=== PATIENT | male | born 1970 | race Caucasian/White ===

== ENCOUNTER 2018-11-13 12:15 | Emergency (ER) | payer SELFPAY ==
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
[2018-11-13 12:23] VITALS: BP 148/105; PULSE 77; RESP 16; TEMP 36.6; O2SAT 99
--- NOTE | 2018-11-13 13:02 | DI.RAD_ITS ---
SYMPTOMS/DIAGNOSIS: S/P FALL, ? ACUTE FRACTURE RIGHT SHOULDER: There is spurring at the AC joint. No fracture or dislocation is seen. A subchondral cyst is seen in the humeral head. There is spurring at the glenoid. IMPRESSION: Degenerative changes. No acute abnormality. PA AND LATERAL CHEST AND RIGHT RIBS: The heart size is normal. The lungs appear clear. No pneumothorax is seen. There is no infiltrate or effusion. Degenerative changes are seen in the spine. No rib fractures are identified. IMPRESSION: No acute abnormality.
[2018-11-13] MEDS: Ibuprofen 600 MG TAB PO (13:14)
--- NOTE | 2018-11-13 14:17 | DI.VRAD_ITS ---
EXAM: XR Right Ribs EXAM DATE/TIME: 11/13/2018 1:04 PM CLINICAL HISTORY: 48 years old, male; Signs and symptoms; Other: S/P fall, R/O acute fracture TECHNIQUE: Imaging protocol: XR Right ribs Views: 2 views. COMPARISON: No relevant prior studies available. FINDINGS: Bones/joints: Normal. Soft tissues: Normal. IMPRESSION: No acute findings. EXAM: XR Chest, 2 Views EXAM DATE/TIME: 11/13/2018 1:04 PM CLINICAL HISTORY: 48 years old, male; Signs and symptoms; Other: S/P fall, R/O acute fracture TECHNIQUE: Imaging protocol: XR of the chest, 2 views. COMPARISON: No relevant prior studies available. FINDINGS: Lungs: Unremarkable. No consolidation. Pleural space: Unremarkable. No pleural effusion. No pneumothorax. Heart/Mediastinum: Unremarkable. No cardiomegaly. Bones/joints: Unremarkable. IMPRESSION: No acute findings. Dictated and Authenticated by: Jacobo Coats MD. Ordering:MANISHA Harrison MD
--- NOTE | 2018-11-13 14:19 | DI.VRAD_ITS ---
EXAM: XR Right Shoulder EXAM DATE/TIME: 11/13/2018 1:04 PM CLINICAL HISTORY: 48 years old, male; Signs and symptoms; Other: S/P fall, R/O acute fracture TECHNIQUE: Imaging protocol: XR Right shoulder. Views: 2 or more views. COMPARISON: No relevant prior studies available. FINDINGS: Bones/joints: Degenerative changes in the acromioclavicular joint Degenerative changes in the glenohumeral joint There is no evidence of acute fracture. There is no evidence of malalignment or dislocation. Soft tissues: Normal. IMPRESSION: 1. There is no evidence of acute fracture. 2. There is no evidence of malalignment or dislocation. Dictated and Authenticated by: Jacobo Coats MD. Ordering:MANISHA Harrison MD
== END 2018-11-13 14:57 | disposition home or self-care (01) ==
PROVIDERS: Emergency Provider Physician Assistant; PCP Family Medicine
DX: S20.221A Contusion of right back wall of thorax, initial encounter (principal); S20.211A Contusion of right front wall of thorax, initial encounter; S46.911A Strain of unspecified muscle, fascia and tendon at shoulder and upper arm level, right arm, initial encounter; I10 Essential (primary) hypertension; V86.05XA Driver of 3- or 4- wheeled all-terrain vehicle (ATV) injured in traffic accident, initial encounter
CPT/HCPCS: 99284; 71046; 71100; 73030; 99282

== ENCOUNTER 2019-02-04 12:06 | Emergency (ER) | payer OTHER, SELFPAY ==
[2019-02-04 12:13] VITALS: BP 175/98; PULSE 94; RESP 16; TEMP 36.5; O2SAT 96
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
== END 2019-02-04 12:42 | disposition home or self-care (01) ==
PROVIDERS: Emergency Provider Student in an Organized Health Care Education/Training Program; PCP Family Medicine
DX: S43.402A Unspecified sprain of left shoulder joint, initial encounter (principal); V43.51XA Car driver injured in collision with sport utility vehicle in traffic accident, initial encounter; I10 Essential (primary) hypertension
CPT/HCPCS: 99283; 99282

== ENCOUNTER 2019-05-16 09:02 | Outpatient (CLI) | payer SELFPAY, OTHER ==
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
== END 2019-05-16 09:22 ==
PROVIDERS: PCP Family Medicine; Visit Provider Chiropractor
DX: M54.2 Cervicalgia (principal); R51 Headache; M50.321 Other cervical disc degeneration at C4-C5 level; M50.322 Other cervical disc degeneration at C5-C6 level
CPT/HCPCS: 72125

== ENCOUNTER 2019-06-13 03:05 | Outpatient (CLI) | payer OTHER, SELFPAY ==
[2019-06-13 13:04] LABS: ALT 33 U/L (16-63); AST 19 U/L (15-37); Albumin 3.7 g/dL (3.4-5.0); Alkaline Phosphatase 80 U/L (46-116); Anion Gap 5.3 mmol/L (3-11); BUN 22 mg/dL (7-18); Bilirubin, Total 0.3 mg/dL (0.2-1.0); CO2 30.7 mmol/L (21.0-32.0); CREATININE 0.82 mg/dL (0.70-1.30); Calcium 9.2 mg/dL (8.5-10.1); Chloride 106 mmol/L (98-107); Glucose 98 mg/dL (74-106); Potassium 5.4 mmol/L (3.5-5.1); Sodium 142 mmol/L (136-145); Total Protein 6.9 g/dL (6.4-8.2)
[2019-06-13 13:06] LABS: Calculated LDL 152 mg/dL; Cholesterol 200 mg/dL (<200); HDL Cholesterol 33 mg/dL (40-60); Triglyceride 79 mg/dL (<150)
== END 2019-06-13 03:25 ==
PROVIDERS: PCP Family Medicine; Visit Provider Internal Medicine
DX: I10 Essential (primary) hypertension (principal); Z79.1 Long term (current) use of non-steroidal anti-inflammatories (NSAID)
CPT/HCPCS: 36415; 80053; 80061

== ENCOUNTER 2019-06-19 01:01 | Outpatient (CLI) | payer OTHER, SELFPAY ==
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
== END 2019-06-19 01:21 ==
PROVIDERS: PCP Family Medicine; Visit Provider Internal Medicine
DX: M25.511 Pain in right shoulder (principal); M25.512 Pain in left shoulder; M19.012 Primary osteoarthritis, left shoulder
CPT/HCPCS: 73030

== ENCOUNTER 2019-07-27 01:08 | Outpatient (CLI) | payer OTHER, SELFPAY ==
[2019-07-27 13:00] LABS: ALT 34 U/L (16-63); AST 19 U/L (15-37); Albumin 3.8 g/dL (3.4-5.0); Alkaline Phosphatase 87 U/L (46-116); Anion Gap 5.1 mmol/L (3-11); BUN 16 mg/dL (7-18); Bilirubin, Total 0.5 mg/dL (0.2-1.0); CO2 31.9 mmol/L (21.0-32.0); CREATININE 0.98 mg/dL (0.70-1.30); Calcium 9.2 mg/dL (8.5-10.1); Chloride 101 mmol/L (98-107); Glucose 104 mg/dL (74-106); Potassium 3.8 mmol/L (3.5-5.1); Sodium 138 mmol/L (136-145); Total Protein 6.9 g/dL (6.4-8.2)
== END 2019-07-27 01:28 ==
PROVIDERS: PCP Family Medicine; Visit Provider Internal Medicine
DX: I10 Essential (primary) hypertension (principal)
CPT/HCPCS: 36415; 80053

== ENCOUNTER 2019-09-25 13:34 | Outpatient (CLI) | payer SELFPAY ==
--- NOTE | 2019-09-25 13:30 | DI.US_ITS ---
EXAM: US LOWER EXTREMITY VENOUS LT CLINICAL HISTORY: pain,swelling lt lower ext,m79.605,m79.89,m79.662, ? dvt. TECHNIQUE: Right lower extremity venous ultrasound performed using grayscale, color-flow, and spectr al Doppler analysis. COMPARISON: No exams were available for comparison FINDINGS: The right common femoral, femoral and popliteal veins demonstrate normal compressibility, augmentatio n, and color Doppler. The posterior tibial veins are patent. In the area of the redness in the patie nt's thigh, there is thrombus visualized in the greater saphenous vein which is also dilated. No damon tamika or Owens's cyst is seen. IMPRESSION: Focal saphenous thrombosis in the area of the redness the medial thigh. No evidence of deep venous t hrombosis. DATA REPOSITORY:
[2019-09-25 14:22] LABS: Abs Immature Grans 0.03 k/cumm (0.0-0.09); Absolute Basophil Count 0.06 k/cumm (0.0-0.2); Absolute Eosinophil Count 0.31 k/cumm (0.0-0.7); Absolute Lymphocyte Count 1.93 k/cumm (1.2-3.4); Absolute Monocyte Count 1.05 k/cumm (0.11-0.7); Absolute Neutrophil Count 8.05 k/cumm (1.2-6.7); Basophils % 0.5; Eosinophils % 2.7; HCT 47.5 % (40.0-50.0); HGB 16.4 g/dL (13.5-17.5); Immature Grans % 0.3 %; Lymphocytes % 16.9; Mean Corp. HGB Concentration 34.5 g/dL (32.0-36.0); Mean Corpuscular Hemoglobin 31.2 pg (27.0-33.0); Mean Corpuscular Volume 90.3 fL (80-95); Mean Platelet Volume 9.7 fL (8.0-11.0); Monocytes % 9.2; Neutrophils % 70.4; Platelet Count 274 x1000/uL (130-400); RBC 5.26 m/cumm (4.50-6.00); RBC Distribution Width 13.3 % (11.8-14.1); White Blood Cell Count 11.43 k/cumm (4.4-10.8)
[2019-09-25 14:57] LABS: D-Dimer 1533 ng/mlFEU (<500)
[2019-09-25 15:00] LABS: Anion Gap 8.5 mmol/L (3-11); BUN 17 mg/dL (7-18); C-Reactive Protein 0.45 mg/dL (0.0-0.3); CO2 29.5 mmol/L (21.0-32.0); CREATININE 0.93 mg/dL (0.70-1.30); Calcium 9.5 mg/dL (8.5-10.1); Chloride 103 mmol/L (98-107); Glucose 111 mg/dL (74-106); Potassium 3.8 mmol/L (3.5-5.1); Sodium 141 mmol/L (136-145)
[2019-09-26 10:02] LABS: Lyme Ab w Rflx to Lyme Confirm Negative (Negative)
[2019-09-29 03:13] LABS: Anaplasma phagocytophilum Negative (Negative); B. miyamotoi PCR Negative (Negative); Babesia divergens/MO-1 Negative (Negative); Babesia duncani Negative (Negative); Babesia microti Negative (Negative); Ehrlichia chaffeensis Negative (Negative); Ehrlichia ewingii/canis Negative (Negative); Ehrlichia muris eauclairensis Negative (Negative)
== END 2019-09-25 13:54 ==
PROVIDERS: PCP Family Medicine; Visit Provider Nurse Practitioner Family
DX: M79.662 Pain in left lower leg (principal); R22.42 Localized swelling, mass and lump, left lower limb; M79.652 Pain in left thigh; I82.812 Embolism and thrombosis of superficial veins of left lower extremity
CPT/HCPCS: 80048; 87798; 85025; 85379; 86140; 86618; 93971

== ENCOUNTER 2019-10-04 10:00 | Outpatient (CLI) | payer SELFPAY ==
--- NOTE | 2019-10-04 09:30 | DI.US_ITS ---
EXAM: US LOWER EXTREMITY VENOUS LT CLINICAL HISTORY: I82.819 embolism/thrombosis superficial veins LLE, ?enlargement, ? DVT TECHNIQUE: Ultrasound performed using standard protocol. COMPARISON: US LOWER EXTREMITY VENOUS LT from 09/25/2019 FINDINGS: Duplex evaluation of the deep venous system of the left lower extremity was performed according to e usual protocol.Examination is compared with prior examination of 09/25/2019. Prior examination javed wed a saphenous thrombosis in the medial thigh. No DVT was identified on the prior study. On today's examination there is no evidence of deep venous thrombosis. However the greater saphenous vein thrombus now extends proximally and lies 5-10 millimeters from the common femoral vein. No dir ect common femoral vein involvement seen. No additional significant findings. IMPRESSION: Extension of greater saphenous thrombus proximally which now approaches the greater saphenous/common femoral junction. Distance from thrombus to junction is 5-10 millimeters. You may wish to consider anticoagulation at this time. DATA REPOSITORY:
== END 2019-10-04 10:20 ==
PROVIDERS: PCP Family Medicine; Visit Provider Nurse Practitioner Family
DX: I82.812 Embolism and thrombosis of superficial veins of left lower extremity (principal)
CPT/HCPCS: 93971

== ENCOUNTER 2020-01-22 01:23 | Outpatient (CLI) | payer OTHER, SELFPAY ==
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
== END 2020-01-22 01:43 ==
PROVIDERS: PCP Nurse Practitioner Family; Visit Provider Student in an Organized Health Care Education/Training Program
DX: M25.512 Pain in left shoulder (principal); M19.012 Primary osteoarthritis, left shoulder
CPT/HCPCS: 73221

== ENCOUNTER 2020-06-05 03:04 | Outpatient (CLI) | payer OTHER, SELFPAY ==
[2020-06-05 13:13] LABS: Abs Immature Grans 0.03 10^3/uL (0.0-0.06); Absolute Basophil Count 0.07 10^3/uL (0.0-0.2); Absolute Eosinophil Count 0.19 10^3/uL (0.0-0.7); Absolute Lymphocyte Count 1.79 10^3/uL (1.2-3.4); Absolute Monocyte Count 0.84 10^3/uL (0.1-0.8); Absolute Neutrophil Count 6.55 10^3/uL (1.2-6.7); Basophils % 0.7; HCT 48.9 % (40.0-50.0); HGB 16.3 g/dL (13.5-17.5); Immature Grans % 0.3; Lymphocytes % 18.9; MCH 30.9 pg (27.0-33.0); MCHC 33.3 % (32.0-36.0); MCV 92.8 fL (80-95); MPV 10.1 fL (8.0-11.0); Monocytes % 8.9; Neutrophils % 69.2; Nucleated RBC 0 %; Platelet Count 282 10^3/uL (130-400); RBC 5.27 10^6/uL (4.36-5.78); RDW-SD 44.9 fL; WBC 9.47 10^3/uL (4.4-10.8)
[2020-06-05 13:20] LABS: ALT 41 U/L (16-63); AST 18 U/L (15-37); Albumin 3.6 g/dL (3.4-5.0); Alkaline Phosphatase 97 U/L (46-116); Anion Gap 8.2 mmol/L (3-11); BUN 18 mg/dL (7-18); Bilirubin, Total 0.4 mg/dL (0.2-1.0); CO2 30.8 mmol/L (21.0-32.0); CREATININE 1.14 mg/dL (0.70-1.30); Calcium 9.2 mg/dL (8.5-10.1); Calculated LDL 164 mg/dL (<100); Chloride 100 mmol/L (98-107); Cholesterol 223 mg/dL (<200); Glucose 129 mg/dL (74-106); HDL Cholesterol 32 mg/dL (40-60); Potassium 4.8 mmol/L (3.5-5.1); Sodium 139 mmol/L (136-145); Triglyceride 136 mg/dL (<150)
== END 2020-06-05 03:24 ==
PROVIDERS: PCP Nurse Practitioner Family; Visit Provider Nurse Practitioner Family
DX: E78.5 Hyperlipidemia, unspecified (principal); Z01.818 Encounter for other preprocedural examination
CPT/HCPCS: 36415; 80053; 80061; 83036; 85025

== ENCOUNTER 2020-09-09 00:44 | Outpatient (CLI) | payer OTHER, SELFPAY ==
--- NOTE | 2020-09-09 13:49 | DI.US_ITS ---
APPROVED REPORT EXAM: Comprehensive 2D, Doppler, and color-flow Echocardiogram Patient Location: [facility] Advocate: Kyung George RDCS (AE) Indications: Pre operative Other Information Study Quality: Fair. Technically limited study due to body habitus. Conclusion Technically difficult but adequate study Normal left ventricular chamber size and wall thickness. Estimated ejection fraction is 55 to 60%. There are no segmental wall motion abnormalities Normal right ventricular size and systolic function Both atria are normal in size There is no significant valvular disease Wall motion Left Ventricle The left ventricle is normal size. The left ventricular systolic function is normal. The left ventric ular ejection fraction is within the normal range. There is normal left ventricular wall thickness. T here is normal LV segmental wall motion. There is no ventricular septal defect visualized. LVEF is 56 %. Right Ventricle Right ventricle is grossly normal in size. Right ventricular systolic function is grossly normal. Atria The left atrium size is normal. The right atrium size is normal. The interatrial septum is intact wit h no evidence for an atrial septal defect. Aortic Valve The aortic valve is normal in structure. There is no aortic valvular stenosis. No aortic regurgitatio n is present. Mitral Valve The mitral valve is normal in structure. No evidence of mitral valve stenosis. Trace mitral regurgita tion. Tricuspid Valve The tricuspid valve is normal in structure. There is no tricuspid valve stenosis. Trace tricuspid reg urgitation. Unable to assess PA pressure. Pulmonic Valve Pulmonic valve is not well visualized. There is no pulmonic valvular stenosis. Great Vessels The aortic root is normal in size. Ascending aorta is not Aortic arch is normal in caliber. The IVC was not visualized. Pericardium There is no pericardial effusion. 2D Dimensions IVSD d PLAX 1.24 cm M: 0.6-1.2 LV Vol A2C d MOD 146.4 mL LVPW d PLAX 1.22 cm M: 0.6 - 1.2 LV Vol A4C d MOD 196.0 mL LVID d PLAX 5.21 cm M: 4.2 - 5.8 LV EF A4C MOD 56.0 % LVDs 3.70 cm M: 2.5 - 4.0 LV EF A2C MOD 56.7 % Ao Root d 3.71 cm M: 3.1 - 3.7 LV EF Biplane MOD 55.9 % RA Area A4C 15.25 cm2 SV 94.73 mL RA Vol/ BSA A4C s A-L 15.0 mL/m2 SV Index 33.28 mL/m2 LV EF Teichholz 55.1 % LVEF (Johnson's) 55.86 % M: 52 - 72 LV Volume 114.59 mL M: 62 - 150 LV Volume Index 40.34 mL/m2 M: 34 - 74 LV Vol Biplane MOD 169.6 mL FS 28.85 % M-Mode TAPSE 2.35 cm (M/F) >1.7 LV Diastology MV E' medial 0.095 (>0.07 m/s) E/A Ratio 1.3 LV E/e MED 6.95 (<14) MV E Vmax 0.66 (0.4-1.3 m/s) MV E' lateral 0.126 (>0.1 m/s) MV A Vmax 0.50 (0.4-1.3 m/s) LV E/e LAT 5.25 (<14) MV E/A Ratio 1.22 MV E/E' medial 6.96 MV E/E' lateral 5.27 Aortic Valve LVOT Area 4.85 cm2 AoV Area Vmax 3.93 cm2 LVOT Vmax 0.93 m/s AoV Area/ BSA (Vmax) 1.38 cm2/m2 LVOT Mean Malachi. 0.62 m/s MARILOU Mean Malachi. 3.57 cm2 LVOT Peak Grad 3.5 mmHg MARILOU Mean Malachi. Index 1.25 cm2/m2 LVOT Mean Grad 1.8 mmHg LVOT VTI 0.165 m LVOT Diam s 2.45 cm AoV Vmax 1.15 m/s Velocity Ratio 0.80 AoV Mean Malachi. 0.85 m/s AoV Peak Grad 5.3 mmHg LVOT SV 80.05 mL AoV Mean Grad 3.1 mmHg AoV VTI 0.207 m AoV Area VTI 3.87 cm2 AoV Area/ BSA (VTI) 1.36 cm/m2 Mitral Valve MV DT 249 (160-240 msec) MV PHT 72 msec MV Area PHT 3.05 cm2 Pulmonary Valve PV Vmax 0.95 (0.5-1.5 m/s) RVOT Peak Gr. 2.37 mmHg PV Peak Grad 3.6 mmHg RVOT Mean Gr. 1.20 mmHg PV Mean Grad 2.2 mmHg RVOT VTI 0.132 m PV VTI 0.167 m RVOT Vmax 0.77 m/s
== END 2020-09-09 01:04 ==
PROVIDERS: PCP Nurse Practitioner Family; Visit Provider Nurse Practitioner Family
DX: Z01.810 Encounter for preprocedural cardiovascular examination (principal); R93.9 Diagnostic imaging inconclusive due to excess body fat of patient
CPT/HCPCS: 93306

== ENCOUNTER 2021-02-18 04:37 | Outpatient (CLI) | payer OTHER, SELFPAY ==
[2021-02-18 13:01] LABS: BUN 16 mg/dL (7-18); CREATININE 1.2 mg/dL (0.70-1.30); Calcium 9.8 mg/dL (8.5-10.1); Calculated LDL 118 mg/dL (<100); Chloride 97 mmol/L (98-107); Cholesterol 209 mg/dL (<200); Glucose 407 mg/dL (74-106); HDL Cholesterol 25 mg/dL (40-60); Potassium 4.4 mmol/L (3.5-5.1); Sodium 137 mmol/L (136-145); Triglyceride 331 mg/dL (<150)
[2021-02-18 13:14] LABS: Hemoglobin A1C 11.2 % (<5.7)
== END 2021-02-18 04:38 | disposition home or self-care (01) ==
PROVIDERS: PCP Nurse Practitioner Family; Visit Provider Nurse Practitioner Family
DX: R73.03 Prediabetes (principal)
CPT/HCPCS: 36415; 80048; 80061; 83036

== ENCOUNTER 2021-02-20 16:01 | Outpatient (REF) | payer OTHER, SELFPAY ==
[2021-02-20 15:51] LABS: Bilirubin Negative (Negative); Blood Large (Negative); Clarity Clear (Clear); Glucose >=1000 mg/dL (Negative); Ketones 40 mg/dL (Negative); Leukocyte Esterase Small (Negative); Nitrite Negative (Negative); Urobilinogen 0.2 EU/dL (Up TO 0.2); pH 5.5 (5-8)
[2021-02-20 16:17] LABS: Bacteria Few HPF (Negative); Epithelial Cells Many HPF (Negative); WBC >50 HPF (0-5)
[2021-02-20 16:18] LABS: C & S Indicated? No/Sq. Contamination; Casts Negative LPF (Negative); Crystals Few Amorphous HPF (Negative); Mucus Negative (Negative)
[2021-02-21 14:40] LABS: COMMENT (LAB VIEW ONLY) 84.28 mg/dL; Microalb ug/mg Crea 52.6 ug/mg Cr
== END 2021-02-20 16:02 | disposition home or self-care (01) ==
LOC: LBN 16:01
PROVIDERS: PCP Nurse Practitioner Family; Visit Provider Nurse Practitioner Family
DX: E11.9 Type 2 diabetes mellitus without complications (principal)
CPT/HCPCS: 81003; 81015; 82043; 82570

== ENCOUNTER 2021-03-25 03:47 | Outpatient (CLI) | payer OTHER, SELFPAY ==
[2021-03-25 13:13] LABS: Anion Gap 9.3 mmol/L (3-11); BUN 31 mg/dL (7-18); CO2 26.7 mmol/L (21.0-32.0); CREATININE 1.2 mg/dL (0.70-1.30); Calcium 9.2 mg/dL (8.5-10.1); Calculated LDL 95 mg/dL (<100); Chloride 103 mmol/L (98-107); Cholesterol 154 mg/dL (<200); Glucose 122 mg/dL (74-106); HDL Cholesterol 28 mg/dL (40-60); Potassium 4.8 mmol/L (3.5-5.1); Sodium 139 mmol/L (136-145); Triglyceride 159 mg/dL (<150)
== END 2021-03-25 03:48 | disposition home or self-care (01) ==
LOC: LOS 03:48
PROVIDERS: PCP Nurse Practitioner Family; Visit Provider Nurse Practitioner Family
DX: E11.9 Type 2 diabetes mellitus without complications (principal)
CPT/HCPCS: 36415; 80048; 80061

== ENCOUNTER 2021-09-04 02:27 | Outpatient (CLI) | payer OTHER, SELFPAY ==
[2021-09-04 09:14] LABS: Anion Gap 8.6 mmol/L (3-11); BUN 25 mg/dL (7-18); CO2 27.4 mmol/L (21.0-32.0); CREATININE 1.1 mg/dL (0.70-1.30); Calcium 9.1 mg/dL (8.5-10.1); Calculated LDL 79 mg/dL (<100); Chloride 101 mmol/L (98-107); Cholesterol 142 mg/dL (<200); Glucose 97 mg/dL (74-106); HDL Cholesterol 30 mg/dL (40-60); Potassium 4.3 mmol/L (3.5-5.1); Sodium 137 mmol/L (136-145); Triglyceride 166 mg/dL (<150)
== END 2021-09-04 02:28 | disposition home or self-care (01) ==
LOC: LBO 02:27
PROVIDERS: PCP Nurse Practitioner Family; Visit Provider Nurse Practitioner Family
DX: E11.9 Type 2 diabetes mellitus without complications (principal)
CPT/HCPCS: 36415; 80048; 80061; 83036

== ENCOUNTER 2023-04-21 11:40 | Outpatient (CLI) | payer OTHER, SELFPAY ==
[2023-04-21 13:16] LABS: ALT 38 U/L (16-63); AST 24 U/L (15-37); Albumin 3.8 g/dL (3.4-5.0); Alkaline Phosphatase 81 U/L (46-116); Anion Gap 7.8 mmol/L (3-11); BUN 27 mg/dL (7-18); Bilirubin, Total 0.3 mg/dL (0.2-1.0); CO2 30.2 mmol/L (21.0-32.0); CREATININE 1.2 mg/dL (0.70-1.30); Calcium 10.1 mg/dL (8.5-10.1); Chloride 103 mmol/L (98-107); Estimated GFR 73.67 (mL/min/1.73m2); Glucose 131 mg/dL (74-106); Potassium 4.6 mmol/L (3.5-5.1); Sodium 141 mmol/L (136-145); TSH (W/Ref FT4) 1.92 uIU/mL (0.36-3.74); Total Protein 8.1 g/dL (6.4-8.2)
[2023-04-22 10:10] LABS: PSA, Screening 0.4 ng/mL (<=3.5)
[2023-04-22 10:30] LABS: Hepatitis C Ab w Rflx HCV PCR Negative (Negative)
== END 2023-04-21 11:41 | disposition home or self-care (01) ==
LOC: LOS 11:41
PROVIDERS: PCP Nurse Practitioner Family; Referring Provider Nurse Practitioner Family; Visit Provider Nurse Practitioner Family
DX: Z00.00 Encounter for general adult medical examination without abnormal findings (principal)
CPT/HCPCS: 36415; 80053; 84153; 86803; 84443

== ENCOUNTER 2024-08-15 02:47 | Outpatient (CLI) | payer MEDICARE, SELFPAY ==
--- NOTE | 2024-08-15 | DI.CTLCSR_ITS ---
Exam(s) CT CHEST LUNG CANCER SCREEN EXAM: CT CHEST LUNG CANCER SCREEN CLINICAL HISTORY: Screening for lung cancer,personal h/o nicotine dependence, z87.891 TECHNIQUE: Imaging Protocol: Axial computed tomography images with coronal and sagittal reformatted images were created and reviewed. Lung Computer Aided Detection (CAD) was utilized. COMPARISON: No exams were available for comparison FINDINGS: Tracheobronchial tree: Patent where visualized. No bronchiectasis. Pulmonary parenchyma: No consolidation or dominant measurable mass. No architectural distortion. Lung Nodules: There is a 3 mm nodule in the left upper lobe (series 2, image 47). Mediastinum and Josefa: No dominant adenopathy or fluid collection. The esophagus is unremarkable. Thyroid gland: Unremarkable. Lymph nodes: Unremarkable. Pleura: No effusion or pneumothorax. Heart: The heart is not dilated. No coronary artery calcifications are seen. No pericardial effusion . Aorta: Thoracic aorta non-dilated.Mild atherosclerotic calcification is present. Upper abdomen: Evaluation of the abdomen is limited due to the technique. No gross abnormality is i dentified. Soft Tissues: Unremarkable. Bones: Within normal limits. IMPRESSION: 3 mm left upper lobe nodule. Lung RADS Cat 2 - Benign Appearance / Behavior: Nodules with a very low likelihood of becoming a clin ically active cancer due to size or lack of growth Lung-RADS 1.0 CATEGORIES: Category 0 - Prior chest CT exam(s) being located for comparison. Category 1 - Annual screening in 12 months. No nodules or definitely benign nodules. Category 2 - Annual screening in 12 months. Benign appearance. Nodules with low likelihood of becomin g active cancer. Category 3 - 6-month follow-up. Probably benign. Short-term follow-up suggested. Nodules with low lik elihood of becoming active cancer. Category 4A - 3-month follow-up and CT/PET if >8 mm in size. Suspicious finding. Findings which requi re additional testing. Category 4B - Findings which require additional testing and tissue sampling. Suspicious finding. Category 4X - Category 3 or 4 nodules with additional features or imaging findings that increases the suspicion of malignancy. Modifier S- Potentially clinically significant finding. (Non lung cancer) RADIATION DOSE DELIVERED: 92.3mGy.cm Total DLP 92.3mGy.cmTotal DLP DATA REPOSITORY: All CT scans at this facility are submitted to the National Radiology Data Registry (NRDR) Dose Index Registry (DIR) with the [employer] ([employer]). RADIATION OPTIMIZATION: All CT scans at this facility use at least one of these dose optimization te chniques: automated exposure control; mA and/or kV adjustment per patient size (includes targeted exa ms where dose is matched to clinical indication); or iterative reconstruction.
== END 2024-08-15 03:07 ==
PROVIDERS: PCP Nurse Practitioner Family; Visit Provider Nurse Practitioner Family
DX: Z12.2 Encounter for screening for malignant neoplasm of respiratory organs (principal); Z87.891 Personal history of nicotine dependence; R91.1 Solitary pulmonary nodule
CPT/HCPCS: 71271

== ENCOUNTER 2024-11-22 02:22 | Outpatient (CLI) | payer MEDICARE, SELFPAY ==
[2024-11-22 13:02] LABS: Anion Gap 4.9 mmol/L (3-11); BUN 21 mg/dL (7-18); CO2 31.1 mmol/L (21.0-32.0); CREATININE 0.9 mg/dL (0.70-1.30); Calcium 9.5 mg/dL (8.5-10.1); Calculated LDL 111 mg/dL (<100); Chloride 101 mmol/L (98-107); Cholesterol 174 mg/dL (<200); Estimated GFR 102.76 (mL/min/1.73m2); Glucose 138 mg/dL (74-106); HDL Cholesterol 36 mg/dL (>or=40); Potassium 4.3 mmol/L (3.5-5.1); Sodium 137 mmol/L (136-145); Triglyceride 137 mg/dL (<150)
[2024-11-22 13:07] LABS: Hemoglobin A1C 6.6 % (<5.7)
[2024-11-22 18:45] LABS: PSA, Screening 0.4 ng/mL (<=3.5)
[2024-11-22 19:29] LABS: HIV-1/2 Ag & Ab Screen Negative (Negative)
[2024-11-22 21:07] LABS: HBs Antibody, Quant 4.4 mIU/mL (See Note); Hep B Surface Ab Negative (See Note); Hepatitis B Core Antibody Negative (Negative); Hepatitis B Surface Antigen Negative (Negative)
== END 2024-11-22 02:23 | disposition home or self-care (01) ==
LOC: LOS 02:22
PROVIDERS: PCP Nurse Practitioner Family; Visit Provider Nurse Practitioner Family
DX: E11.9 Type 2 diabetes mellitus without complications (principal); Z00.00 Encounter for general adult medical examination without abnormal findings; I10 Essential (primary) hypertension; E78.5 Hyperlipidemia, unspecified; Z12.5 Encounter for screening for malignant neoplasm of prostate; Z11.59 Encounter for screening for other viral diseases; Z11.4 Encounter for screening for human immunodeficiency virus [HIV]
CPT/HCPCS: 36415; 80048; 80061; 84153; 86704; 86706; 87340; 87389; 83036